=== PATIENT | female | born 1965 | race Caucasian/White ===

== ENCOUNTER → 2024-01-14 15:55 | Outpatient (REF) | payer BC, SELFPAY | LOC: WDC 15:55 | PROVIDERS: ATTENDING PHYSICIAN Internal Medicine | DX: Z12.31 Encounter for screening mammogram for malignant neoplasm of breast (principal) | CPT/HCPCS: 77063; 77067 ==

== ENCOUNTER → 2025-01-19 16:24 | Outpatient (REF) | payer BC, SELFPAY | LOC: WDC 16:24 | PROVIDERS: ATTENDING PHYSICIAN Obstetrics & Gynecology Gynecology; FAMILY PHYSICIAN Internal Medicine | DX: Z12.31 Encounter for screening mammogram for malignant neoplasm of breast (principal) | CPT/HCPCS: 77063; 77067 ==